=== PATIENT | female | born 1995 | race Caucasian/White ===

== ENCOUNTER → 2020-05-04 | Outpatient (CLI) | payer BC, SELFPAY ==
[2020-05-04 16:04] LABS: RED BLOOD COUNT 4.91 M/UL (4.00-5.10); WHITE BLOOD COUNT 7.6 K/UL (4.5-11.0)
== END ==
LOC: LAB 15:30
PROVIDERS: Internal Medicine Rheumatology
DX: M79.10 Myalgia, unspecified site (principal); M25.50 Pain in unspecified joint; R73.9 Hyperglycemia, unspecified
CPT/HCPCS: 36415; 83036; 85025

== ENCOUNTER → 2020-05-08 | Outpatient (CLI) | payer BC, SELFPAY, OTHER ==
[2020-05-10 13:09] LABS: C-PEPTIDE, SERUM 1.6 ng/mL (1.1-4.4)
[2020-05-11 16:15] LABS: ANTIPANCREATIC ISLET CELLS Negative (Neg:<1:1)
[2020-05-13 18:12] LABS: GAD-65 AUTOANTIBODY 7824.6 U/mL (0.0-5.0)
[2020-05-15 20:08] LABS: FREE INSULIN 3.5 uU/mL (.); TOTAL INSULIN 3.7 uU/mL (.)
== END ==
LOC: LAB 08:25
PROVIDERS: Family Medicine
DX: E11.9 Type 2 diabetes mellitus without complications (principal)
CPT/HCPCS: 84681; 86337; 86341

== ENCOUNTER → 2021-08-17 | Outpatient (CLI) | payer BC ==
[2021-08-17 10:28] LABS: BORDETELLA PARAPERTUSSIS Not Detected (Not Detectd); BORDETELLA PERTUSSIS Not Detected (Not Detectd); CHLAMYDIA PNEUMONIAE Not Detected (Not Detectd); CORONAVIRUS HKU1 Not Detected (Not Detectd); CORONAVIRUS NL63 Not Detected (Not Detectd); CORONAVIRUS OC43 Not Detected (Not Detectd); CORONOAVIRUS 229E Not Detected (Not Detectd); HUMAN METAPNEUMOVIRUS Not Detected (Not Detectd); HUMAN RHINOVIRUS/ENTEROVIRUS Not Detected (Not Detectd); INFLUENZA A Not Detected (Not Detectd); INFLUENZA B Not Detected (Not Detectd); MYCOPLASMA PNEUMONIAE Not Detected (Not Detectd); PARAINFLUENZA VIRUS 1 Not Detected (Not Detectd); PARAINFLUENZA VIRUS 2 Not Detected (Not Detectd); PARAINFLUENZA VIRUS 3 Not Detected (Not Detectd); PARAINFLUENZA VIRUS 4 Not Detected (Not Detectd); RESPIRATORY SYNCYTIAL VIRUS Not Detected (Not Detectd)
[2021-08-17 13:37] LABS: SARS-CoV-2 NOT DETECTED (Not Detectd)
== END ==
LOC: LAB 10:13
PROVIDERS: Family Medicine
DX: J06.9 Acute upper respiratory infection, unspecified (principal); Z20.822 Contact with and (suspected) exposure to COVID-19
CPT/HCPCS: 87633